=== PATIENT | female | born 1975 | race Two or more races ===

== ENCOUNTER 2023-10-22 10:03 | Outpatient (CLI) | payer OTHER, SELFPAY ==
--- OUTSIDE RECORDS SUMMARY | 2023-10-22 10:08 | XMS_ITS | Clinical Summary ---
Author Name Unknown Organization [facility] Address [place], [place] [address] Care Team Providers Care Newspaper Peddler Name Role Phone Pcp, No Primary Care Provider Unavailabl e Allergies No known active allergies Medications No known medications Active Problems Problem Noted Date Diagnosed Date Episodic low back pain 12/15/2014 Overview: Since approximately 2007. Right low back. November 2014: MedX program. MRI December 2014 of lumbar spine. December 2014: trigger point right low back injection. 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 Plan: Pap/HPV 09/2018 Resolved Problems Problem Noted Date Diagnosed Date Resolved Date Major depressive disorder, s savanna episode, unspecified 08/27/2007 08/13/2013 Placenta previa without hemo rrhage, antepartum 08/22/2007 10/31/2007 Supervision of other normal 08/01/2007 11/12/2008 INJURY, CRUSHING, FINGER 04/08/2000 Immunizations Name Administration Dates Next Due Influenza, IIV3 (Age >=3 years) 08/13/2013,06/17,04/06/2008,04/30/2007 Td (Age >=7 Years) 06/05/2005 Tdap 08/13/2013 Family History Medical History Relation Name Comments Cancer Maternal Aunt not sure what kind Cancer Maternal Grandfather not manuel e what kind Diabetes Maternal Grandfather Diabetes Maternal Grandmother Hypertension Mother Hypertension Sister 1 Thyroid Disease Sister 2 Relation Name Status Comments Maternal Aunt Maternal Grandfather Maternal Grandmother Mother Sister 1 Sister 2 Social History Tobacco Use Types Packs/Day Years Used Date Smoking Tobacco: Never Smokeless Tobacco: Never Tobacco Cessation:Counseling Given: Yes Comments:never Alcohol Use Standard Drinks/Week Comments No 0 (1 standard drink = 0.6 oz pur e alcohol) PHQ-2 Answer Date Recorded PHQ-2 Score 6 09/07/2018 Sex and Gender Information Value Date Recorded Sex Assigned at Not on file Gender Identity Not on file Sexual Orientation Not on file Obstetrics History Para Term AB IAB SAB Ectopic Multiple Livin g Live Births 3 3 3 3 3 Date Outcome GA Total Labor Labor/2nd/3rd Weight Sex Delivery Anes PTL Helen A1 A5 Name Cl in 06/18 Term 40w 0d 3h 00m/ 3 kg (6 lb 9.8 oz) F Vag Yazmin cynthia prescott 07/17 Term 40w 0d 3h 00m/ 4.42 kg (9 lb 12 oz) M Vag Yazmin cynthia [place] 07/12 Term 40w 0d 3h 00m/ 3.09 kg (6 lb 13 oz) F Vag Yazmin ng Barbara na Last Filed Vital Signs Vital Sign Reading Time Taken Comments Blood Pressure 126/83 12/31/2017 1:48 PM CDT Pulse 68 12/31/2017 1:48 PM CDT Temperature 36.8 ??C (98.3 ??F) 12/31/2017 1:48 PM CD T Respiratory Rate 12 08/22/2007 11:02 AM GREETING CARD WRITER Oxygen Saturation 97% 12/31/2017 1:48 PM CDT Inhaled Oxygen Concentration - - Weight 80.3 kg (177 lb) 12/31/2017 1:48 PM CDT Height 154.1 cm (5' 0.67) 12/31/2017 1:48 PM CD T Body Mass Index 33.81 12/31/2017 1:48 PM CDT Plan of Treatment Health Maintenance Due Date Last Done Comments BMI (ht and wt on same day) for age 18+ 12/31/2018 12/31/2017, 02/06/2017, 09/12/2016, Additional history exists Depression screening for age 12+ 12/31/2018 12/31/2017, 09/12/2016, 09/29/2015 Colonoscopy through age 75 2021 Mammogram for age 45-75 2021 04/05/2020 Lipids for age 45-75 09/12/2021 09/12/2016, 09/02/19 13 COVID-19 vaccine series ( season) 2023 Tetanus booster 08/13/2023 08/13/2013, 06/05/2005 Influenza for age 9-49 03/08/2024 4, 06/17/2009, 04/06/2008, Additional history exists Pap test for age 21-65 12/28/2024 2, 12/28/2021, 01/27/2020, Additional history exists Tdap Completed 08/13/2013 HIV for age 15-65 Completed 09/12/2016, , 08/19/2013, Additional history exists Hepatitis C screening for age 18-79 Completed 09/12/2016, 09/29/2015, 08/19/2013 Pneumococcal series for age 6-64 Aged Out No longer eligible based on patient's age to complete this topic Procedures Procedure Name Priority Date/Time Associated Diagnosis Comments HPV THIN PREP Routine 12/28/2021 10:30 AM CDT SCAN-MAMMOGRAPHY REPORT 04/05/2020 12:00 AM CDT ANTI HIV 1/2 Routine 09/12/2016 12:01 PM GREETING CARD WRITER Screen for STD (sexually transmitted disease) ANTI HCV Routine 09/12/2016 12:01 PM GREETING CARD WRITER Screen for STD (sexually transmitted disease) LIPID PANEL W REFLEX MEASURED LDL Routine 09/12/2016 12:01 PM GREETING CARD WRITER Screening for lipid disorders from Last 3 Months or Most Recently Relevant to Health Maintenance Results * (ABNORMAL) HPV HIGH RISK (12/28/2021 10:30 AM CDT) TYPE 16 Negative Negative 01/01/2022 11:09 AM CDT [facility] TYPE 18 Negative Negative 01/01/2022 11:09 AM CDT [facility] OTHER HIGH RISK TYPES Positive(A) Negative 01/01/2022 11:09 AM CDT [facility] Other (Cervical) 12/28/2021 10:30 AM CDT 12/28/2021 6:01 PM CDT Narrative [facility] - 01/01/2022 11:09 AM CDT Specimen is positive for the DNA of any one of, or combination of, the following high risk HPV types: 31, 33, 35, 39, 45, 51, 52, 56, 58, 59, 66, 68. HPV types 16 and 18 DNA were undetectable or below the pre-set threshold. ? Methodology: Nkechi Jareth 4800 HPV Test October Lakshmi CLARK MICROBIOLOGY [facility] [address] [place] [address], * SCAN-MAMMOGRAPHY REPORT (04/05/2020 12:00 AM CDT) Anatomical Region Laterality Modality Other Scanner OTHER * (ABNORMAL) LIPID PANEL W REFLEX MEASURED LDL (09/12/2016 12:01 PM GREETING CARD WRITER) CHOLESTEROL,TOTAL 142 100 - 199 mg/dL 09/12/2016 12:37 PM GREETING CARD WRITER RUST TRIGLYCERIDES 159(H) <150 mg/dL 09/12/2016 12:37 PM GREETING CARD WRITER RUST HDL CHOLESTEROL 40(L) >40 mg/dL 7 12:37 PM GREETING CARD WRITER RUST NON-HDL CHOLESTEROL 102 <145 mg/dl 09/12/2016 12:37 PM GREETING CARD WRITER RUST CHOL/HDL RATIO 3.55 <4.50 09/12/2016 12:37 PM GREETING CARD WRITER RUST LDL CHOLESTEROL 70 <=130 mg/dL 09/12/2016 12:37 PM GREETING CARD WRITER RUST PATIENT STATUS NON-FASTI NG 09/12/2016 12:37 PM GREETING CARD WRITER RUST Blood BLOOD SPECIMEN / Unknown Venipuncture / Unknown 09/12/2016 12:01 PM GREETING CARD WRITER 09/12/2016 12:01 PM GREETING CARD WRITER Jennifer BUCK CHEMISTRY [address] [place] [address], * ANTI HCV (09/12/2016 12:01 PM GREETING CARD WRITER) HEPATITIS C ANTIBODY Non-Reacti ve Non-Reacti ve 09/12/2016 4:36 PM GREETING CARD WRITER [facility] Blood BLOOD SPECIMEN / Unknown Venipuncture / Unknown 09/12/2016 12:01 PM GREETING CARD WRITER 09/12/2016 12:01 PM GREETING CARD WRITER Narrative [facility] - 09/12/2016 4:36 PM GREETING CARD WRITER Antibodies to HCV not detected; does not exclude the possibility of exposure to HCV. Jennifer BUCK SEND OUTS [facility] [address] [place] [address], [place] * ANTI HIV 1/2 (09/12/2016 12:01 PM GREETING CARD WRITER) HIV-1/HIV-2 ANTIBODY Non-Reacti ve Non-Reacti ve 09/12/2016 4:38 PM GREETING CARD WRITER [facility] Blood BLOOD SPECIMEN / Unknown Venipuncture / Unknown 09/12/2016 12:01 PM GREETING CARD WRITER 09/12/2016 12:01 PM GREETING CARD WRITER Narrative [facility] - 09/12/2016 4:38 PM GREETING CARD WRITER HIV-1 p24 and HIV-1/HIV-2 Ab not detected Jennifer BUCK SEND OUTS [facility] [address] [place] [address], [place] from Last 3 Months or Most Recently Relevant to Health Maintenance Care Teams Newspaper Peddler Relationship Specialty Start Date End Date Pcp, No . PCP - General 09/07/18
--- OUTSIDE RECORDS SUMMARY | 2023-10-22 10:09 | XMS_ITS | Data Portability ---
Author Name Unknown Address [address] [place] [address] Phone [phone] Organization [facility] OFFICE Address [address] [place] [phone] Assessment Encounter Date Assessment Date Assessment LastModified by Organization Details LastModified Time 02/28/2021 02/28/2021 Pt presents with red eye pain. No evidence of foreign body or infection. Vision sl blurry. Given duration and discomfort, send to opthamologist for further evaluation. [email or web address] Not available 02/28/2021 18:55:24 Plan of Treatment Reminders Order Date Submit Date Provider Last Modified By Organization Details Last Modified Time Details Appointments Any 30 2023 03:30P Michael WHARTON MD Not available Not available Not available Lab test, urine 2019 020 [facility] Office, [address] [place] [address], [phone], 04/06/2020 15:44:10 CBC 2019 020 [facility] Office, [address] [place] [address], [phone], 04/07/2020 14:00:22 test, urine 2019 020 [facility] Office, [address] [place] [address], [address], 02/12/2020 11:03:42 urinalysi s, dipstick 2019 020 [facility] Office, [address] [place] [address] [place], [address], 02/12/2020 11:02:04 TSH, serum or plasma 2019 poli [facility], [address] [place], [address], 02/12/2020 11:03:35 CBC 2019 RENAN Not available 01/25/2020 16:57:55 urinalysi s, microscop ic 2019 RENAN Not available 01/25/2020 16:57:55 Referral ophthalmo logist referral 2020 [email or web address] Not available 03/01/2021 18:54:00 Procedures None recorded. Surgeries None recorded. Imaging XR, chest, 2 view - Cough, LLQ consolida tion 2021 [facility]iology Department, [address] [place], [address], 05/21/2022 15:29:42 US, pelvis, complete 2019 [facility], [address] [place], [address], 03/30/2020 20:35:58 MAMMO, screening , bilateral 2019 [facility]iology Department, [address] [place], [address], 05/03/2020 16:52:56 Medication Orders Naprosyn 500 mg tablet 2021 022 [facility], [address] [place], [address], 2022 18:26:49 amoxicill in 500 mg capsule [email or web address] [place] [address], [address] [place], [address], 10/17/2023 08:26:39 amoxicill in 500 mg tablet 2021 [address], [address], 05/25/2022 08:55:16 azithromy garland 250 mg tablet 2021 [address], [address], 05/25/2022 08:54:56 Iron (ferrous sulfate) 325 mg (65 mg iron) tablet 2019 020 [email or web address] Not available 05/08/2022 15:21:58 Patient TargetsNo targets recorded. Patient Instructions Encounter Date Encounter Id Patient Instructions Last Modified By Organization Details Last Modified Time 2022 [id number] rest and heal will help back, call if not better eddie Not available 06/27/2022 10:50:20 06/22/2020 [id number] see HPI Not available 06/22 19:17:30 03/30/2020 [id number] We will be in touch on pelvic ultrasound report. We will recheck on hemoglobin to see if anemia is resolving. If you have reoccuring issues with heavy flow let us know Not available 03/30/2020 19:33:51 Not available 2019 19:32:12 02/24/2020 [id number] We will check an ultrasound to further evaluate vaginal bleeding. Not available 02/24/2020 19:31:59 01/27/2020 [id number] Vaginal Bleeding (Nonpregnancy): Care Instructions Not available 01/27/2020 20:01:38 start on iron supplement. use ibuprofen as needed for pain and cramping. We will be in touch on lab results(thyroid, Pap smear) come in for labs next week see us in a month for follow up visit. 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 Referring Physician: Rosalba Mckeon, Family Medicine, Encounter Date: 02/28/2021 Results Created Date Observation Date Name Description Value Unit Range Abnormal Flag LastModifiedBy Organization Detail LastModifiedTime 05/03/2020 urina lysis , micro scopi c WBC 6.9 Not Available Not Available 01/06 16:57:55 05/03/2020 urina lysis , micro scopi c HGB 10.8 low Not Available Not Available 01/06 16:57:55 05/03/2020 urina lysis , micro scopi c platelet count 469 high Not Available Not Available 16:57:55 05/03/2020 urina lysis , micro scopi c RBC 3-5 Not Available Not Available 01/06 16:57:55 05/03/2020 urina lysis , micro scopi c WBC 0-2 Not Available Not Available 01/06 16:57:55 05/03/2020 urina lysis , micro scopi c bacteria many Not Available Not Available 16:57:55 05/03/2020 urina lysis , micro scopi c epithelial cells many Not Available Not Available 16:57:55 05/03/2020 urina lysis , micro scopi c mucus presen t Not Available Not Available 01/25/20 20 16:57:55 05/03/2020 CBC WBC 6.9 Not Available N ot Available 01/25/2020 16:55:35 05/03/2020 CBC HGB 10.8 low Not Available N ot Available 01/25/2020 16:55:35 05/03/2020 CBC platelet count 469 high Not Available Not Available 16:55:35 05/03/2020 CBC RBC 3-5 Not Available N ot Available 01/25/2020 16:55:35 05/03/2020 CBC WBC 0-2 Not Available N ot Available 01/25/2020 16:55:35 05/03/2020 CBC bacteria many Not Availabl e Not Available 01/25/2020 16:55:35 05/03/2020 CBC epithelial cells many Not Available Not Available 16:55:35 05/03/2020 CBC mucus presen t Not Available Not Available 01/25/20 16:55:35 04/06/2004/06/2020 pregn robby test, urine HCG negati ve Not Available [facility] [address] [facility] [place], [address], 03/30/2020 19:08:38 04/07/2004/07/2020 CBC WBC 7.5 Not Available Not Av ailable 04/07/2020 13:28:25 04/07/2004/07/2020 CBC HGB 10.7 Not Available Not Av ailable 04/07/2020 13:28:25 04/07/2004/07/2020 CBC platelet count 305 Not Available Not Available 13:28:25 04/20/2004/20/2020 CBC WBC 8.4 Not Available [facility] [address] [place] [address] [place], [address], 04/20/2020 19:43:33 04/20/20 20 04/20/2020 CBC HGB 12.3 Not Available [facility] [address] [place] [address] [place], [address], 04/20/2020 19:43:33 04/20/20 20 04/20/2020 CBC platelet count 281 Not Available [facility] [address] [place] [address] [place], [address], 04/20/2020 19:43:33 06/10/20 20 06/10/2020 CBC WBC 8.4 Not Available [facility] [address] [place] [address] [place], [address], 06/10/2020 14:52:30 06/10/20 20 06/10/2020 CBC HGB 12.3 Not Available [facility] [address] [place] [address] [place], [address], 06/10/2020 14:52:30 06/10/20 20 06/10/2020 CBC platelet count 281 Not Available [facility] [address] [place], [address], 06/10/2020 14:52:30 03/30/20 20 US, pelvi s, compl ete No observ ation record ed. [facility] Department [address] [place], [address], 03/30/2020 20:44:08 04/21/20 20 04/05/2020 US, pelvi s, compl ete No observ ation record ed. [email or web address] [facility] [address] [place], [address], 04/25/2020 16:08:36 05/03/20 20 04/05/2020 MAMMO , scree momo, bilat eral No observ ation record ed. [email or web address] [facility] [address] [place], [address], 04/20/2021 15:15:44 05/21/20 22 05/21/2022 XR, chest , 2 view No observ ation record ed. [facility] [address] [place], [address], 05/28/2022 11:17:11 Result Notes None recorded. Problems Name Status Onset Date Resolution Date Notes Provider Name and Address Organization Details Recorded Time Migraine Active 2 XIOMARA KELLY [address] [place], [address], [facility] [employer] 05/08/2022 15:21:24 Hemorrhoids Active 2 XIOMARA KELLY [address] [place], [address], [facility] [employer] 05/08/2022 15:24:41 Problem Notes None recorded. Procedures Surgical History None recorded. Imaging Results Imaging Date Name Status LastModified by Organiz ation Details LastModified Time 03/30/2020 US, pelvis, complete completed [email or web address] [facility] [address] [place], [address], 03/30/2020 20:44:08 04/05/2020 US, pelvis, complete completed [email or web address] [facility] [address] [place], [address], 04/25/2020 16:08:36 04/05/2020 MAMMO, screening, bilateral completed [facility] [address] [place], [address], 04/20/2021 15:15:44 05/21/2022 XR, chest, 2 view completed [email or web address] [facility] [address] [place], [address], 05/28/2022 11:17:11 Procedure Notes None recorded. Medical Equipment None Reported. Allergies No known drug allergies Medications Name Sig Start Date Stop Date Status Note LastModified by Organization Details LastModified Time amoxicillin 500 mg capsule TAKE ONE CAPSULE BY MOUTH EVERY 8 HOURS 10/16 completed Not Available Not Available Not Available Iron (ferrous sulfate) 325 mg (65 mg iron) tablet Take 1 tablet twice a day by oral route for 30 days. 05/08 completed Not Available Not Available Not Available azithromycin 250 mg tablet TAKE 2 TABLETS BY MOUTH TODAY THEN 1 TABLET DAILY FOR 4 DAYS 05/25 completed Not Available Not Available Not Available Pyridium 100 mg tablet take 1 tablet by oral route 3 times every day after meals 05/25 completed Not Available Not Available Not Available ciprofloxaci n 0.3 % eye drops 05/08 completed Not Available Not Available Not Available naproxen 500 mg tablet TAKE ONE TABLET BY MOUTH TWICE A DAY active Not Available Not Available No t Available Vitals Date Recorded Body weight Heart rate Respiratory rate Systolic blood pressure Diastolic blood pressure Provider Name and Address Organization Details Last Updated DateTime 0 99500.4 8 g 60 /min 12 /min 144 mm[Hg] 90 mm[Hg] Glenn Avila MD [address] [place], [address] [place] [facility] 19:26:02 Date Recorded Body weight Heart rate Systolic blood pressure Diastolic blood pressure Provider Name and Address Organization Details Last Updated DateTime 02/24/2020 55430.07 g 84 /min 118 mm[Hg] 68 mm[Hg] Paz schmitz [facility] 02/24/2020 19:11:31 Date Recorded Body weight Heart rate Systolic blood pressure Diastolic blood pressure Provider Name and Address Organization Details Last Updated DateTime 03/30/2020 03156.89 g 68 /min 118 mm[Hg] 64 mm[Hg] Paz schmitz [facility] 03/30/2020 19:12:42 Date Recorded Body height Body mass index (BMI) Body weight Heart rate Body temperature Oxygen saturation Oxygen saturation in Arterial blood by Pulse oximetry Systolic blood pressure Diastolic blood pressure Provider Name and Address Organization Details Last Updated DateTime 2 157.48 cm 29.8 kg/m2 21039.5 6 g 90 /min 98.8 [degF] 96 % 96 % 134 mm[Hg] 92 mm[Hg] SADI KELLY- [address] [place], [address], [facility] 2 15:27:01 Date Recorded Body height Body mass index (BMI) Body weight Systolic blood pressure Diastolic blood pressure Provider Name and Address Organization Details Last Updated DateTime 2022 157.48 cm 29.6 kg/m2 73018.96 g 158 mm[Hg] 87 mm[Hg] Earnest Miller MD [address] [place], [address] 2 19:29:56 Date Recorded Systolic blood pressure Diastolic blood pressure Provider Name and Address Organization Details Last Updated DateTime 09/23/2018 143 mm[Hg] 90 mm[Hg] Not Available [facility] 01/25/2020 12:57:46 Date Recorded Systolic blood pressure Diastolic blood pressure Provider Name and Address Organization Details Last Updated DateTime 05/13/2018 144 mm[Hg] 94 mm[Hg] Not Available [facility] 01/25/2020 12:57:46 Date Recorded Systolic blood pressure Diastolic blood pressure Provider Name and Address Organization Details Last Updated DateTime 09/04/2018 150 mm[Hg] 100 mm[Hg] Not Available [facility] 01/25/2020 12:57:46 Social History Question Answer Notes LastModified by Organizat ion Details LastModified Time Tobacco Smoking Status Never Smoker [facility] 03/30/2020 19:13:04 Do You Or Have You Ever Used E-cigarettes Or Vape? Never Used Electronic Cigarettes [email or web address] Information not available 03/30/2020 Sex: Female Functional Status None recorded. Mental Status None recorded. Family History Nothing Reported. Medical History No medical history recorded. Gynecological HistoryNo gynecological history recorded. Obstetrics History GPAL:G 0 P 0 0 0 0 Immunizations Vaccine Type Date Status Provider Name and Address Organization Details Recorded Time COVID-19, mRNA, LNP-S, PF, 30 mcg/0.3 mL dose 11/08/2020 completed MD Fatoumata MCCONNELL[address] [place] [address], [address], [facility] 10/17/2023 08:35:23 COVID-19, mRNA, LNP-S, PF, 30 mcg/0.3 mL dose 11/29/2020 completed ABEL WHARTON MD [address] [place] [address], [address], [facility] 10/17/2023 08:35:23 Tdap 08/13/2013 completed MD Fatoumata MCCONNELL[address] [place] [address], [phone], [facility] 10/17/2023 08:35:23 Influenza, seasonal, injectable 08/13/2013 completed ABEL WHARTON MD [address] [place] [address], [phone], [facility] 10/17/2023 08:35:23 Influenza, seasonal, injectable 04/06/2008 completed MD [place], [address], [facility] 10/17/2023 08:35:23 Influenza, seasonal, injectable 04/30/2007 completed MD [place], [address], [facility] 10/17/2023 08:35:23 Influenza, seasonal, injectable, preservative free 06/17/2009 completed ABEL WHARTON MD [address] [place], [place] [address] [place], [address], [facility] 10/17/2023 08:35:23 Td (adult), 5 Lf tetanus toxoid, preservative free, adsorbed 06/05/2005 completed ABEL WHARTON MD [address] [place], [place] [address] [place], [address], [facility] 10/17/2023 08:35:23 Past Encounters Encounter ID Performer Location Encounter Start Date Encounter Closed Date Diagnosis/Indication Diagnosis SNOMED-CT Code [id number] Santo Rojas MD [facility] [address] [place] [address] 12/24/2019 17:31:58 12/24/2019 19:36:[id number] NP [facility] [address] [place] [address] [place] [address] 01/20/2020 19:47:54 01/21/2020 11:51:31 Abnormal vaginal bleeding [id number] Rohini Lora NP [facility] [address] [place] [address] [place] [address] 01/25/2020 10:15:56 01/25/2020 12:32:25 [id number] Glenn Avila MD [facility] [address] [place] [address] [facility] [place] [address] 01/27/2020 18:56:59 01/27/2020 20:52:47 Abnormal vaginal bleeding 264874319 Screening for malignant neoplasm of cervix 964167802 Iron defic iency anemia 42338743 Screening mammography 24 [id number] Rohini Lora NP [facility] [address] [place] [address] [place] [address] 02/10/2020 15:31:37 02/10/2020 17:38:37 [id number] Glenn Avila MD [facility] [address] [place] [address] [place] [address] 02/24/2020 19:04:15 02/24/2020 20:10:03 Abnormal vaginal bleeding [id number] Glenn Avila MD [facility] [address] [place] [address] 03/30/2020 18:58:07 03/30/2020 19:34:50 Menorrhagia [id number] Glenn Avila MD [facility] [address] [place] [address] [facility] [place] [address] 06/22/2020 18:56:17 06/22/2020 20:51:04 [id number] Earnest Miller MD [facility] [address] [place] [address] 02/07/2021 18:04:14 02/07/2021 20:21:54 Impacted cerumen of bilateral ears 2928811118859 [id number] [facility] [address] [place] [address] 02/28/2021 18:25:08 02/28/2021 18:54:15 Pain of right eye [id number] [facility] [address] [place] [address] 05/08/2022 15:08:20 05/08/2022 16:28:32 Community acquired pneumonia [id number] [facility] [address] [place] [address] 05/29/2022 13:45:41 05/29/2022 14:20:32 Community acquired pneumonia [id number] Earnest Miller MD [facility] [address] [place] [address] 2022 17:30:27 2022 18:37:43 Backache 087597604 Acute otitis media 37372 03 Health Concerns Section Related Observation LastModified by Organization Detai ls LastModified Time None Recorded Concern Status LastModified by Organization Details LastModified Time None Recorded Advance Directives Directive None Recorded Payers Encounter Date Sequence Insurance Name Policy Number Policy Shea Covered Member ID Shea Member ID Guarantor Name 2022 SLIDING FEE SCHEDULE - DISCOUNT Taryn Duke Abarca 05/29/2022 SLIDING FEE SCHEDULE - DISCOUNT Taryn Duke Abarca 05/08/2022 SLIDING FEE SCHEDULE - DISCOUNT Taryn Duke Abarca 02/28/2021 SLIDING FEE SCHEDULE - DISCOUNT Taryn Duke Abarca 02/07/2021 SLIDING FEE SCHEDULE - DISCOUNT Taryn Duke Abarca 06/22/2020 SLIDING FEE SCHEDULE - DISCOUNT Taryn Duke Abarca 03/30/2020 SLIDING FEE SCHEDULE - DISCOUNT Taryn Duke Abarca 02/24/2020 SLIDING FEE SCHEDULE - DISCOUNT Taryn Duke Abarca 02/10/2020 SLIDING FEE SCHEDULE - DISCOUNT Taryn Duke Abarca 01/27/2020 SLIDING FEE SCHEDULE - DISCOUNT Taryn Duke Abarca 01/25/2020 SLIDING FEE SCHEDULE - DISCOUNT Taryn Duke Abarca 01/20/2020 SLIDING FEE SCHEDULE - DISCOUNT Taryn Duke Abarca 12/24/2019 SLIDING FEE SCHEDULE - DISCOUNT Taryn Duke Abarca Notes Date Note Type Note Provider Name and Address Organization Details Recorded Time 01/20/2020 text/html HPI Notes: Abnormal Bleeding Reported by patient. Onset/Timing: irregular Duration: 11 days Quality: passing clots; heavy Severity: 4 pads x day Context: New sexual partner Associated Symptoms: no dizziness; no shortness of breath; no bloating; no vaginal discharge; no vaginal itching/irritation ; pelvic pain; fatigue; change in urinary function Patient reports vaginal bleeding x 11 days. Irregular menstrual cycle- unsure LMP she has a new sexual partner- denies STD concerns States she has been passing clots like the size of a angelo Reports urinary urgency and dysuria. Reports minimal pelvic/abdominal pain [address] NP [address] [place], [address], [employer] 01/20/2020 21:08:54 01/27/2020 text/html HPI Notes: vagin al bleeding since January 08(18 days). some rectal bleeding. no hemorrhoids. no nosebleeds or bruising. Glenn Avila MD [address] [place], [address], [facility] [employer] 01/27/2020 20:43:58 02/24/2020 text/html HPI Notes: feeli ng better. No further vaginal bleeding issues. Normal period last week. Glenn Avila MD [address] [place], [address], [employer] 02/24/2020 19:37:45 03/30/2020 text/html HPI Notes: johni ng better. Last menses in February lasted 3 days. Glenn Avila MD [address] [place], [address], [facility] 03/30/2020 19:38:39 06/22/2020 text/html HPI Notes: call for follow up on heavy periods. she has been doing well. Ultrasound showed fibroid. cycles not as heavy now. continues on iron and vitamin. some constipation. Suggested continue on iron. If flow worsening we could consider IUD, BCP, or endometrial ablation. recheck in one year. Glenn Avila MD [address] [place], [address], [facility] [employer] 06/22/2020 19:19:19 02/07/2021 text/html HPI Notes: heari cynthia ok, [place] [address] [place] [address], [address], [facility] [employer] 02/07/2021 19:58:03 02/28/2021 text/html HPI Notes: Pt presents for pain in right eye x 2 weeks. 2 days ago, lower lid also became swollen. No drainage, prior trauma, or known eye exposure. Wears eye make-up on weekends only. No contact use. XIOMARA KELLY [address] [place], [address], [facility] 02/28/2021 18:55:56 05/08/2022 text/html HPI Notes: Pt started a week history of fever, headache, cough, back pain, diarrhea. No fever x3 days. No diarrhea now. Back pain is a little better. Started with cough, but notes some dysuria as well. Cough is main concern. Has make it difficult to sleep. Denies nasal drainage, gastritis or relux sx. Notes hx of hemorrhoids, recurrent UTI, and when asked, acknowledges constipation. XIOMARA KELLY [address] [place], [address], [facility] 05/08/2022 15:51:18 05/29/2022 text/html HPI Notes: Autho r called with Marbella alberto to follow-up on pneumonia treatment. She acknowleges completing treatment. Only side effect was mild stomach upset and she ate yogurt throughout treatment. She is feeling much better, cough is almost gone. She has been drinking a lot of water. ROSALBA MCKEON, ANP- [address] [place], [address], [facility] - [facility] 05/29/2022 13:58:36 OBGyn Episode No OBEpisode recorded.
--- NOTE | 2023-10-22 10:11 | MR_ITS ---
[address] [address] Phone:?[phone] Fax:?[phone] Referring Physician Information: Lex Mancia [address] [facility] [address] Phone:?[phone] Fax:?[phone] Patient:?Taryn Abarca D.O.B:?1975 Sex:?Female Phone:?[phone] [facility] MRN:?[id number] Exam Date:?10/22/2023 EXAM: MRI OF THE RIGHT KNEE CLINICAL INFORMATION: The patient is a 48-year-old with right knee pain. Evaluate for meniscal tear. Evaluate for internal derangement. PRIOR SURGERY: None reported. COMPARISON STUDIES: Comparison is made to prior radiographs dated 10/08/2023. TECHNICAL INFORMATION: Imaging was performed on a high-field, 1.5 Dhara MR scanner. Axial proton-density and fat-suppressed T2 imaging was performed in addition to sagittal proton-density and fat-suppressed proton-density imaging. Coronal and on density and coronal STIR imaging was also produced. FINDINGS: Articular/Extraarticular collections: Effusion: Moderate. Popliteal cyst: Small, seen on sagittal series 6 image 25. Loose bodies: No well-defined intra-articular loose bodies are present. Subcutaneous and extraarticular soft tissues: Nonspecific subcutaneous soft tissue edema and/or hemorrhage can be seen along the anterior, medial, and lateral aspects of the right knee. Osseous structures: Reactive marrow edema can be seen along the posterior aspect of the medial tibial plateau, seen on coronal series 8 image 21 and consistent with the meniscal tearing discussed below. Additional cortical irregularity and subcortical edema can be seen along the central and medial articular surfaces of the patella on axial series 4 image 11, in keeping with chondromalacia described below. No other bony abnormalities about the knee are seen. Ligamentous structures: ACL: Intact and normal in appearance. PCL: Intact and normal in appearance. MCL: Intact and normal in appearance. LCL: Intact and normal in appearance. Posterolateral corner: Intact and normal in appearance. Posteromedial corner: No posteromedial corner soft tissue injury. Semimembranosus and pes anserine tendons demonstrate no tendinopathy or associated bursitis. Extensor mechanism/Patellar retinacular structures: Patellar tendon: Intact, without tendinopathy. Quadriceps tendon: Intact, without tendinopathy. Retinacula: The medial and lateral retinacula are intact. The medial patellofemoral ligament is intact. Medial compartment: Medial meniscus: The medial meniscus is abnormal in appearance. There is broad- based apical free edge and inferior surface tearing involving the middle and posterior portions with horizontal extension to the meniscal attachment, seen on coronal series 7 images 19 and 20 and on sagittal series 5 images 22 and 21. The area of medial meniscal tearing measures 20 mm in anteroposterior dimension and 20 mm in mediolateral dimension. A parameniscal cyst can be seen posteriorly on sagittal series 6 image 23 and on coronal series 8 image 23, measuring 12 mm in greatest dimension. The anterior horn of the medial meniscus appears intact. Medial femoral condyle: No chondromalacia, chondral defect, or osteochondral abnormality. Medial tibial plateau: No chondromalacia, chondral defect, or osteochondral abnormality. Lateral compartment: Lateral meniscus: There is a partial discoid variant of the lateral meniscus seen on sagittal series 6 image 10 and on coronal series 7 image 18. No definite evidence for well-defined tearing of the lateral meniscus is noted. No parameniscal cyst formation is identified. Lateral femoral condyle: No chondromalacia, chondral defect, or osteochondral abnormality. Lateral tibial plateau: No chondromalacia, chondral defect, or osteochondral abnormality. Patellofemoral compartment: Patella: Changes of grade II to III chondromalacia can be seen involving the patellar apex and medial patellar facet, measuring 18 mm in mediolateral dimension. Underlying bony changes are seen. No chondral injuries of the lateral patellar facet are noted. Trochlea: No chondromalacia, chondral defect, or osteochondral abnormality. Neurovascular: No definite neurovascular abnormalities are seen. CONCLUSION: 1. Broad-based tearing of the middle and posterior portions of the medial meniscus with a parameniscal cyst. 2. 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 3. 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 Underlying bony changes are seen. 4. The cruciate and collateral ligaments appear intact. 5. Moderate knee joint effusion and small popliteal cyst. AEC Electronically signed on 10/22/2023 4:33:00 PM by Roberto Carlos Martinez M.D.
== END 2023-10-22 10:04 | disposition home or self-care (01) ==
LOC: MRI 10:07
PROVIDERS: Visit Provider Physician Assistant Surgical
DX: M25.561 Pain in right knee (principal); S83.241A Other tear of medial meniscus, current injury, right knee, initial encounter; M22.41 Chondromalacia patellae, right knee; M25.461 Effusion, right knee; M71.21 Synovial cyst of popliteal space [Baker], right knee; M23.91 Unspecified internal derangement of right knee
CPT/HCPCS: 73721; T1013

== ENCOUNTER 2023-11-04 09:02 | Day surgery (SDC) | payer OTHER, SELFPAY ==
[2023-11-04] VITALS (13 sets, daily range): BP systolic 90–152; BP diastolic 47–94; PULSE 55–80; RESP 16–20; TEMP 36.3–37; O2SAT 95–100; BMI 34.7
--- OUTSIDE RECORDS SUMMARY | 2023-11-04 09:07 | XMS_ITS | Data Portability ---
Author Name Unknown Address [address] [place] [address] Phone [phone] Organization [facility] OFF[facility] Address [address] [place] [phone] Assessment Encounter Date Assessment Date Assessment LastModified [...] Not available Lab test, urine 2019 020 [facility] Office, [address] [place] [address], [address], 04/06/2020 15:44:10 CBC 2019 020 [facility], [address] [place] [address], [address], 04/07/2020 14:00:22 test, urine 2019 020 [facility], [address] [place] [address], [address], 02/12/2020 11:03:42 urinalysi s, dipstick 2019 020 [facility], [address] [place] [address] [place], [address], 02/12/2020 11:02:04 TSH, serum or plasma 2019 poli [facility], [address] [place], [address], 02/12/2020 11:03:35 CBC 2019 RENAN Not available 01/25/2020 16:57:55 urinalysi s, microscop ic 2019 RENAN Not available 01/25/2020 16:57:55 Referral ophthalmo logist referral 2020 [email or web address] Not available 03/01/2021 18:54:00 Procedures None recorded. Surgeries None recorded. Imaging XR, chest, 2 view - Cough, LLQ consolida tion 2021 [facility] Radiology Department, [address] [place], [address], 05/21/2022 15:29:42 US, pelvis, complete 2019 [facility] Radiology Department, [address] [place], [address], 03/30/2020 20:35:58 MAMMO, screening , bilateral 2019 [facility] Radiology Department, [address] [place], [address], 05/03/2020 16:52:56 Medication Orders Naprosyn 500 mg tablet 2021 022 [facility], [address] [place], [address], 2022 18:26:49 amoxicill in 500 mg capsule [email or web address] [place] [address], [address] [place], [address], 10/17/2023 08:26:39 amoxicill in 500 mg tablet 2021 [address], [address], 05/25/2022 08:55:16 azithromy garland 250 mg tablet 2021 [address], [address], 05/25/2022 08:54:56 Iron (ferrous sulfate) 325 mg (65 mg iron) tablet 2019 020 [email or web address] Not available 05/08/2022 15:21:58 Patient TargetsNo targets recorded. Patient Instructions Encounter Date Encounter Id Patient Instructions Last Modified By Organization Details Last Modified Time 2022 [id number] rest and heal will help back, call if not better eddie Not available 06/27/2022 10:50:20 06/22/2020 [id number] see HPI Not available 06/22 19:17:30 03/30/2020 [id number] We will be in touch on pelvic ultrasound report. We will recheck on hemoglobin to see if anemia is resolving. If you have reoccuring issues with heavy flow let us know Not available 03/30/2020 19:33:51 Not available 2019 19:32:12 02/24/2020 [id number] We will check an ultrasound to further evaluate vaginal bleeding. Not available 02/24/2020 19:31:59 01/27/2020 [id number] Vaginal Bleeding (Nonpregnancy): Care Instructions Not available 01/27/2020 20:01:38 start on iron supplement. use ibuprofen as needed for pain and cramping. We will be in touch on lab results(thyroid, Pap smear) come in for labs next week see us in a month for follow up visit. 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 Referring [...] test, urine HCG negati ve Not Available [facility] [address] [facility] [place], [address], 03/30/2020 19:08:38 04/07/2004/07/2020 CBC WBC 7.5 Not Available Not Av ailable 04/07/2020 13:28:25 04/07/2004/07/2020 CBC HGB 10.7 Not Available Not Av ailable 04/07/2020 13:28:25 04/07/2004/07/2020 CBC platelet count 305 Not Available Not Available 13:28:25 04/20/2004/20/2020 CBC WBC 8.4 Not Available [facility] [address] [place] [address] [place], [address], 04/20/2020 19:43:33 04/20/20 20 04/20/2020 CBC HGB 12.3 Not Available [facility] [address] [place] [address] [place], [address], 04/20/2020 19:43:33 04/20/20 20 04/20/2020 CBC platelet count 281 Not Available [facility] [address] [place] [address] [place], [address], 04/20/2020 19:43:33 06/10/20 20 06/10/2020 CBC WBC 8.4 Not Available [facility] [address] [place] [address] [place], [address], 06/10/2020 14:52:30 06/10/20 20 06/10/2020 CBC HGB 12.3 Not Available [facility] [address] [place] [address] [place], [address], 06/10/2020 14:52:30 06/10/20 20 06/10/2020 CBC platelet count 281 Not Available [facility] [address] [place], [address], 06/10/2020 14:52:30 03/30/20 20 US, pelvi s, compl ete No observ ation record ed. [email or web address] [facility] Radiology Department [address] [place], [address], 03/30/2020 20:44:08 04/21/20 20 04/05/2020 US, pelvi s, compl ete No observ ation record ed. [email or web address] [facility] Radiology Department [address] [place], [address], 04/25/2020 16:08:36 05/03/20 20 04/05/2020 MAMMO , scree momo, bilat eral No observ ation record ed. [email or web address] [facility] Radiology Department [address] [place], [address], 04/20/2021 15:15:44 05/21/20 22 05/21/2022 XR, chest , 2 view No observ ation record ed. [email or web address] [facility] Radiology Department [address] [place], [address], 05/28/2022 11:17:11 Result Notes None recorded. Problems Name Status Onset Date Resolution Date Notes Provider Name and Address Organization Details Recorded Time Migraine Active 2 XIOMARA KELLY [address] [place], [address], [facility] [employer] 05/08/2022 15:21:24 Hemorrhoids Active 2 XIOMARA KELLY [address] [place], [address], [facility] [employer] 05/08/2022 15:24:41 Problem Notes None recorded. Procedures Surgical History None recorded. Imaging Results Imaging Date Name Status LastModified by Organiz ation Details LastModified Time 03/30/2020 US, pelvis, complete completed [email or web address] [facility] Radiology Department [address] [place], [address], 03/30/2020 20:44:08 04/05/2020 US, pelvis, complete completed [email or web address] [facility] Radiology Department [address] [place], [address], 04/25/2020 16:08:36 04/05/2020 MAMMO, screening, bilateral completed [email or web address] [facility] Radiology Department [address] [place], [address], 04/20/2021 15:15:44 05/21/2022 XR, chest, 2 view completed [email or web address] [facility] Radiology Department [address] [place], [address], 05/28/2022 11:17:11 Procedure Notes None recorded. Medical [...] Address Organization Details Last Updated DateTime 0 81652.4 8 g 60 /min 12 /min 144 mm[Hg] 90 mm[Hg] Glenn Avila MD [address] [place], [address] [place] [facility] 0 19:26:02 Date Recorded Body weight Heart rate Systolic blood pressure Diastolic blood pressure Provider Name and Address Organization Details Last Updated DateTime 02/24/2020 58091.07 g 84 /min 118 mm[Hg] 68 mm[Hg] Paz schmitz [facility] 02/24/2020 19:11:31 Date Recorded Body weight Heart rate Systolic blood pressure Diastolic blood pressure Provider Name and Address Organization Details Last Updated DateTime 03/30/2020 60904.89 g 68 /min 118 mm[Hg] 64 mm[Hg] Paz schmitz [facility] 03/30/2020 19:12:42 Date Recorded Body height Body mass index (BMI) Body weight Heart rate Body temperature Oxygen saturation Oxygen saturation in Arterial blood by Pulse oximetry Systolic blood pressure Diastolic blood pressure Provider Name and Address Organization Details Last Updated DateTime 2 157.48 cm 29.8 kg/m2 27807.5 6 g 90 /min 98.8 [degF] 96 % 96 % 134 mm[Hg] 92 mm[Hg] SADI KELLY- [address] [place], [address], [facility] 2 15:27:01 Date Recorded Body height Body mass index (BMI) Body weight Systolic blood pressure Diastolic blood pressure Provider Name and Address Organization Details Last Updated DateTime 2022 157.48 cm 29.6 kg/m2 08658.96 g 158 mm[Hg] 87 mm[Hg] Earnest Miller MD [address] [place], [address] 2 19:29:56 Date Recorded Systolic blood pressure Diastolic blood pressure Provider Name and Address Organization Details Last Updated DateTime 09/23/2018 143 mm[Hg] 90 mm[Hg] Not Available [facility] 0 01/25/2020 12:57:46 Date Recorded Systolic blood pressure Diastolic blood pressure Provider Name and Address Organization Details Last Updated DateTime 05/13/2018 144 mm[Hg] 94 mm[Hg] Not Available [facility] 0 01/25/2020 12:57:46 Date Recorded Systolic blood pressure Diastolic blood pressure Provider Name and Address Organization Details Last Updated DateTime 09/04/2018 150 mm[Hg] 100 mm[Hg] Not Available [facility] 01/25/2020 12:57:46 Social History Question Answer Notes LastModified by Organizat ion Details LastModified Time Tobacco Smoking Status Never Smoker [facility] 03/30/2020 19:13:04 Do You Or Have You [...] mcg/0.3 mL dose 11/08/2020 completed MD Fatoumata MCCONNELL[address] [place] [address], [address], [facility] 10/17/2023 08:35:23 COVID-19, mRNA, LNP-S, PF, 30 mcg/0.3 mL dose 11/29/2020 completed ABEL WHARTON MD [address] [place] [address], [address], [facility] 10/17/2023 08:35:23 Tdap 08/13/2013 completed MD Fatoumata MCCONNELL[address] [place] [address], [address], [facility] 10/17/2023 08:35:23 Influenza, seasonal, injectable 08/13/2013 completed ABEL WHARTON MD [address] [place] [address], [address], [facility] 10/17/2023 08:35:23 Influenza, seasonal, injectable 04/06/2008 completed MD [place], [address], [facility] 10/17/2023 08:35:23 Influenza, seasonal, injectable 04/30/2007 completed MD [place], [address], [facility] 10/17/2023 08:35:23 Influenza, seasonal, injectable, preservative free 06/17/2009 completed ABEL WHARTON MD [address] [place], [place] [address] [place], [address], [facility] 10/17/2023 08:35:23 Td (adult), 5 Lf tetanus toxoid, preservative free, adsorbed 06/05/2005 completed ABEL WHARTON MD [address] [place], [place] [address] [place], [address], [facility] 10/17/2023 08:35:23 Past Encounters Encounter ID Performer Location Encounter Start Date Encounter Closed Date Diagnosis/Indication Diagnosis SNOMED-CT Code [id number] Santo Rojas MD [facility] [address] [place] [address] 12/24/2019 17:31:58 12/24/2019 19:36:[id number] NP [facility] [address] [place] [address] [place] [address] 01/20/2020 19:47:54 01/21/2020 11:51:31 Abnormal vaginal bleeding [id number] Rohini Lora NP [facility] [address] [place] [address] [place] [address] 01/25/2020 10:15:56 01/25/2020 12:32:25 [id number] Glenn Avila MD [facility] [address] [place] [address] [facility] [address] 01/27/2020 18:56:59 01/27/2020 20:52:47 Abnormal vaginal bleeding 674918934 Screening for malignant neoplasm of cervix 201000104 Iron defic iency anemia 00636656 Screening mammography 24 [id number] Rohini Lora NP [facility] [address] [place] [address] [place] [address] 02/10/2020 15:31:37 02/10/2020 17:38:37 [id number] Glenn Avila MD [facility] [address] [place] [address] [place] [address] 02/24/2020 19:04:15 02/24/2020 20:10:03 Abnormal vaginal bleeding 858893895 [id number] Glenn Avila MD [facility] [address] [place] [address] 03/30/2020 18:58:07 03/30/2020 19:34:50 Menorrhagia [id number] Glenn Avila MD [facility] [address] [place] [address] [facility] [address] 06/22/2020 18:56:17 06/22/2020 20:51:04 [id number] Earnest Miller MD [facility] [address] [place] [address] 02/07/2021 18:04:14 02/07/2021 20:21:54 Impacted cerumen of bilateral ears [id number] [facility] [address] [place] [address] 02/28/2021 18:25:08 02/28/2021 18:54:15 Pain of right eye 0636162346940 02 [id number] [facility] OFFICE [address] [place] [address] 05/08/2022 15:08:20 05/08/2022 16:28:32 Community acquired pneumonia [id number] [facility] [address] [place] [address] 05/29/2022 13:45:41 05/29/2022 14:20:32 Community acquired pneumonia [id number] Earnest Miller MD [facility] [address] [place] [address] 2022 17:30:27 2022 18:37:43 Backache 039692566 Acute otitis media 70442 03 Health Concerns Section Related Observation LastModified [...] minimal pelvic/abdominal pain [address] NP [address] [place], [address], [employer] 01/20/2020 21:08:54 01/27/2020 text/html HPI Notes: vagin al bleeding since January 08(18 days). some rectal bleeding. no hemorrhoids. no nosebleeds or bruising. Glenn Avila MD [address] [place], [address], [facility] [employer] 01/27/2020 20:43:58 02/24/2020 text/html HPI Notes: feeli ng better. No further vaginal bleeding issues. Normal period last week. Glenn Avila MD [address] [place], [address], [employer] 02/24/2020 19:37:45 03/30/2020 text/html HPI Notes: johni ng better. Last menses in February lasted 3 days. Glenn Avila MD [address] [place], [address], [facility] 03/30/2020 19:38:39 06/22/2020 text/html HPI Notes: call for follow up on heavy periods. she has been doing well. Ultrasound showed fibroid. cycles not as heavy now. continues on iron and vitamin. some constipation. Suggested continue on iron. If flow worsening we could consider IUD, BCP, or endometrial ablation. recheck in one year. Glenn Avila MD [address] [place], [address], [facility] [employer] 06/22/2020 19:19:19 02/07/2021 text/html HPI Notes: heari cynthia ok, [place] [address] [place] [address], [address], [facility] [employer] 02/07/2021 19:58:03 02/28/2021 text/html HPI Notes: Pt presents for pain in right eye x 2 weeks. 2 days ago, lower lid also became swollen. No drainage, prior trauma, or known eye exposure. Wears eye make-up on weekends only. No contact use. XIOMARA KELLY [address] [place], [address], [facility] 02/28/2021 18:55:56 05/08/2022 text/html HPI Notes: Pt [...] when asked, acknowledges constipation. XIOMARA KELLY [address] [place], [address], [facility] 05/08/2022 15:51:18 05/29/2022 text/html HPI Notes: Autho r called with Marbella alberto to follow-up on pneumonia treatment. She acknowleges completing treatment. Only side effect was mild stomach upset and she ate yogurt throughout treatment. She is feeling much better, cough is almost gone. She has been drinking a lot of water. ROSALBA MCKEON, ANP- [address] [place], [address], [facility] - [facility] 05/29/2022 13:58:36 OBGyn Episode No OBEpisode recorded.
--- OUTSIDE RECORDS SUMMARY | 2023-11-04 09:07 | XMS_ITS | Clinical Summary ---
Author Name Unknown Organization [facility] Address [place], [place] [address] Care Team Providers Care Treater Helper Name Role Phone Pcp, No Primary Care [...] 11/22/2005 Overview: 12/25/2005 colp: SUSAN 2-3 03/05/2006 [place]: SUSAN 1 & suggestive of SUSAN 2 08/26/2006 Pap: LSIL 09/04/2006 [place]: cervicitis 11/12/2008 Pap: ASCUS/HPV positive 11/30/2008 [place]: SUSAN 1 06/17/2009 Pap: NIL 09/29/2015 Pap: NIL/HPV Negative Plan: Pap/HPV 09/2018 SUSAN III (cervical intraepithelial neoplasia III) Overview: [place]: SUSAN II-III. Plan: Pap/HPV 09/2018 Resolved Problems [...] T Respiratory Rate 12 08/22/2007 11:02 AM POWERHOUSE TENDER Oxygen Saturation 97% 12/31/2017 1:48 PM CDT [...] ANTI HIV 1/2 Routine 09/12/2016 12:01 PM POWERHOUSE TENDER Screen for STD (sexually transmitted disease) ANTI HCV Routine 09/12/2016 12:01 PM POWERHOUSE TENDER Screen for STD (sexually transmitted disease) LIPID PANEL W REFLEX MEASURED LDL Routine 09/12/2016 12:01 PM POWERHOUSE TENDER Screening for lipid disorders from Last 3 Months or Most Recently Relevant to Health Maintenance Results * (ABNORMAL) HPV HIGH RISK (12/28/2021 10:30 AM CDT) TYPE 16 Negative Negative 01/01/2022 11:09 AM CDT [facility] TYPE 18 Negative Negative 01/01/2022 11:09 AM CDT [facility] OTHER HIGH RISK TYPES Positive(A) Negative 01/01/2022 11:09 AM CDT [facility] Other (Cervical) 12/28/2021 10:30 AM CDT 12/28/2021 6:01 PM CDT Narrative [facility] - 01/01/2022 11:09 AM CDT Specimen is positive for the DNA of any one of, or combination of, the following high risk HPV types: 31, 33, 35, 39, 45, 51, 52, 56, 58, 59, 66, 68. HPV types 16 and 18 DNA were undetectable or below the pre-set threshold. ? Methodology: Nkechi Jareth 4800 HPV Test October Lakshmi CLARK MICROBIOLOGY [facility] [address] [place] [address], * SCAN-MAMMOGRAPHY REPORT (04/05/2020 12:00 AM CDT) Anatomical Region Laterality Modality Other Scanner OTHER * (ABNORMAL) LIPID PANEL W REFLEX MEASURED LDL (09/12/2016 12:01 PM POWERHOUSE TENDER) CHOLESTEROL,TOTAL 142 100 - 199 mg/dL 09/12/2016 12:37 PM POWERHOUSE TENDER [facility] TRIGLYCERIDES 159(H) <150 mg/dL 09/12/2016 12:37 PM POWERHOUSE TENDER [facility] HDL CHOLESTEROL 40(L) >40 mg/dL 7 12:37 PM POWERHOUSE TENDER [facility] NON-HDL CHOLESTEROL 102 <145 mg/dl 09/12/2016 12:37 PM POWERHOUSE TENDER [facility] CHOL/HDL RATIO 3.55 <4.50 09/12/2016 12:37 PM POWERHOUSE TENDER [facility] LDL CHOLESTEROL 70 <=130 mg/dL 09/12/2016 12:37 PM POWERHOUSE TENDER [facility] PATIENT STATUS NON-FASTI NG 09/12/2016 12:37 PM POWERHOUSE TENDER [facility] Blood BLOOD SPECIMEN / Unknown Venipuncture / Unknown 09/12/2016 12:01 PM POWERHOUSE TENDER 09/12/2016 12:01 PM POWERHOUSE TENDER Jennifer BUCK CHEMISTRY [facility] [address] [place] [address], * ANTI HCV (09/12/2016 12:01 PM POWERHOUSE TENDER) HEPATITIS C ANTIBODY Non-Reacti ve Non-Reacti ve 09/12/2016 4:36 PM POWERHOUSE TENDER [facility] Blood BLOOD SPECIMEN / Unknown Venipuncture / Unknown 09/12/2016 12:01 PM POWERHOUSE TENDER 09/12/2016 12:01 PM POWERHOUSE TENDER [facility]ative [facility] 09/12/2016 4:36 PM POWERHOUSE TENDER Antibodies to HCV not detected; does not exclude the possibility of exposure to HCV. Jennifer BUCK SEND OUTS [facility] [address] [place] [address], [place] * ANTI HIV 1/2 (09/12/2016 12:01 PM POWERHOUSE TENDER) HIV-1/HIV-2 ANTIBODY Non-Reacti ve Non-Reacti ve 09/12/2016 4:38 PM POWERHOUSE TENDER [facility] Blood BLOOD SPECIMEN / Unknown Venipuncture / Unknown 09/12/2016 12:01 PM POWERHOUSE TENDER 09/12/2016 12:01 PM POWERHOUSE TENDER Narrative [facility] - 09/12/2016 4:38 PM POWERHOUSE TENDER HIV-1 p24 and HIV-1/HIV-2 Ab not detected Jennifer BUCK SEND OUTS [facility] [address] [place] [address], [place] from Last 3 Months or Most Recently Relevant to Health Maintenance Care Teams Treater Helper Relationship Specialty Start Date End Date Pcp, No . PCP - General 09/07/18
[2023-11-04] MEDS: SODIUM CHLORIDE 0.9 % (FLUSH) 10 ML SYRINGE IVF (10:03)
[2023-11-04] MEDS: LACTATED RINGERS 1000 ML 1,000 ML 100 ML IV (10:03)
[2023-11-04] MEDS: CEFAZOLIN 2 GM in 0.9 % SODIUM CHLORIDE Mini-bag 100 ML IVPB (11:09)
--- NOTE | 2023-11-04 11:18 | W.PM.H&PU ---
History & Physical Update History & Physical Update H&P Reviewed and patient assessed: No changes noted
--- NOTE | 2023-11-04 11:58 | W.ANESCHARGE ---
Anesthesia Charges Start Date/Time Anesthesia Start Date: 11/04/23 Anesthesia Start Time: 11:05 Stop Date/Time Anesthesia Stop Date: 11/04/23 Anesthesia Stop Time: 12:00
--- NOTE | 2023-11-04 12:05 | W.ANESCHARGE ---
Anesthesia Charges Start Date/Time Anesthesia Start Date: 11/04/23 Anesthesia Start Time: 11:05 Stop Date/Time Anesthesia Stop Date: 11/04/23 Anesthesia Stop Time: 12:00
--- NOTE | 2023-11-04 12:06 | P.ORPRC_ITS ---
Procedure Note Date of procedure: 11/04/23 Procedure: PREOPERATIVE DIAGNOSIS: 1. Right knee medial meniscus tear POSTOPERATIVE DIAGNOSIS: 1. Right knee medial meniscus tear PROCEDURE: 1. Right knee arthroscopic partial medial meniscectomy SURGEON: Koffi Tristan M.D. FIELD SERVICE TECHNICIAN POULTRY: MARC Villareal. Of note, an speech assistant was critical for this case to aid in patient positioning, knee manipulation, instrument exchange, and closure. ANESTHESIA: Spinal EBL: 2ml TOURNIQUET: 30 min at 300 torr COMPLICATIONS: None evident INDICATIONS: The patient is a pleasant 48-year-old female who has experienced right knee pain particularly with any twisting or turning. Physical exam was concerning for medial meniscus tear, this was confirmed on MRI. Additionally, attempted nonoperative management has been tried, and failed. Thus, surgery was recommended. FINDINGS: Complex tear of the posterior horn medial meniscus extending from near the midbody posterior horn junction around to close to the posterior root. The posterior root was otherwise clearly intact. Lateral meniscus showed the partial discoid anatomy similar to the MRI suggestion, but not so significant it was felt worthy of debridement. 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 Healthy articular cartilage lateral compartment. ACL and PCL intact robust. DESCRIPTION OF PROCEDURE: After a thorough discussion of risks, benefits, and alternatives, the patient was brought to the operating room and placed upon the operating table. Induction of anesthesia was undertaken as previously noted. 2g iv Ancef was administered within 1 hr of incision preoperatively. Appropriate time-out was performed identifying proper patient, site, and procedure. The right lower extremity was prepped and draped in the appropriate sterile fashion using ChloraPrep. The limb was exsanguinated and tourniquet inflated. Anterolateral and anteromedial portals were established with an 11 blade, and a diagnostic arthroscopy was performed. This identified the findings as noted above. Following the diagnostic arthroscopy, a partial medial menisectomy was performed with the combination of basket forceps and a motorized shaver. Following this, the meniscus was re-probed and found to be stable. Approximately 25 % of the overall meniscus required resection. At this stage, the shaver was reinserted into the suprapatellar pouch and all remaining meniscal debris was evacuated. Instruments were removed, excess fluid was drained, and closure performed with 4-0 Monocryl with Steri-Strips. Dressings were applied, the tourniquet deflated, and the patient was awoken from anesthesia and transferred to the PACU in stable condition. PLAN: 1. Weightbear as tolerated operative extremity. Crutch / walker ambulation assistance PRN. 2. Ice, acetominophen and/or ibuprofen, and oxycodone for pain as needed. 3. Knee range of motion and quad sets/straight leg raise regularly 4. Follow up with PA visit in 1-2 weeks for a wound check and possibly to initiate physical therapy.
--- NOTE | 2023-11-04 12:06 | SUR.PHASEI ---
corporate lawyer in PACU with Pt and RN
--- NOTE | 2023-11-04 13:11 | SUR.PHASEII ---
Portuguese interpretor here for admission and discharge
== END 2023-11-04 13:45 | disposition home or self-care (01) ==
LOC: OR 09:04
PROVIDERS: PCP Family Medicine; Visit Provider Orthopaedic Surgery Sports Medicine
PROC: (CPT 29870; principal; 2023-11-04 11:00)
DX: S83.231A Complex tear of medial meniscus, current injury, right knee, initial encounter (principal)
CPT/HCPCS: 29881; 01400; T1013; J0690; J2250; J2405; J2704; J3010; J7120

== ENCOUNTER 2024-02-13 14:30 | Outpatient (RCR) | payer OTHER, SELFPAY | END 2024-03-30 14:54 | disposition home or self-care (01) | PROVIDERS: PCP Family Medicine; Visit Provider Physician Assistant Surgical | DX: Z98.890 Other specified postprocedural states (principal); Z51.89 Encounter for other specified aftercare | CPT/HCPCS: 97110; 97140; 97161; T1013 ==

== ENCOUNTER 2024-07-02 14:58 | Outpatient (CLI) | payer OTHER, SELFPAY ==
--- NOTE | 2024-07-02 15:40 | CRLHL7_ITS ---
For Patients: As a result of the Century Cures Act, medical imaging exams and procedure reports are released immediately into your electronic medical record. You may view this report before your referring provider. If you have questions, please contact your health care provider. BILATERAL SCREENING MAMMOGRAM WITH COMPUTER-AIDED DETECTION AND TOMOSYNTHESIS TECHNIQUE: CC and MLO views were obtained. These mammographic images have been obtained using full-field digital technique. These mammographic images were interpreted with the benefit of computer-aided detection. Breast Tomosynthesis was used in this interpretation. COMPARISON FILM: 04/05/20. FINDINGS: There are scattered areas of fibroglandular density. IMPRESSION: There is no radiographic evidence for malignancy. ASSESSMENT: BI-RADS Category 1: Negative RECOMMENDATION: Routine screening mammogram in 1 year. A lay language report of this examination will be provided to the patient. Sunil Anthony M.D. Diagnostic Radiologist [email or web address] SP/Dictated by: Sunil Anthony MD @ 07/03/2024 9:30:00 AM (Electronically Signed)
== END 2024-07-02 14:59 | disposition home or self-care (01) ==
LOC: MAMMO 15:00
PROVIDERS: PCP Family Medicine; Visit Provider Advanced Practice Midwife
DX: Z12.31 Encounter for screening mammogram for malignant neoplasm of breast (principal)
CPT/HCPCS: 77063; 77067

== ENCOUNTER 2024-07-02 15:48 | Outpatient (CLI) | payer OTHER, SELFPAY ==
[2024-07-05 06:15] LABS: HPV Source Cervical; HPV, High Risk by TMA Not Detected
[2024-07-10 14:10] LABS: Pap Test Reviewed by Path Done
== END 2024-07-02 15:49 | disposition home or self-care (01) ==
PROVIDERS: PCP Family Medicine; Visit Provider Advanced Practice Midwife
DX: Z12.4 Encounter for screening for malignant neoplasm of cervix (principal)
CPT/HCPCS: 87624; 87625; 88141; 88142